=== PATIENT | female | born 1950 | race Caucasian/White ===

== ENCOUNTER 2024-11-28 14:52 | Emergency (ER) | payer MEDICARE, MEDICAID, SELFPAY ==
[2024-11-28 14:52] VITALS: BMI 22.8
[2024-11-28 15:49] VITALS: BP 136/47; PULSE 79; RESP 18; TEMP 37; O2SAT 96
--- NOTE | 2024-11-28 15:49 | XR_ITS ---
EXAMINATION: Ankle, left 3 views . Technique: Ankle AP, oblique, lateral 3 views Date and time of exam: November 28, 2024 at 1626 hours INDICATIONS: Patient fell today with into the ankle, ankle pain. FINDINGS: Acute fracture distal fibular shaft, no significant displacement Acute fracture medial malleolus, 3 mm offset at the fracture site No ankle dislocation IMPRESSION: Acute bimalleolar fractures
--- NOTE | 2024-11-28 15:49 | XR_ITS ---
Examination: Foot, left, 3 views Technique: AP, oblique, lateral views foot, 3 views Date and time of exam: November 28, 2024, 1626 hours INDICATION: Patient fell 2 days ago with injury to foot, foot pain. FINDINGS: Severe osteopenia. Please see the ankle report Old appearing angulation distal fifth metatarsal but clinical correlation advised Advanced osteoarthritis first tarsometatarsal joint Plantar posterior bony calcaneal spurs IMPRESSION: Advanced osteoarthritis first tarsometatarsal joint Please see the ankle report
--- NOTE | 2024-11-28 17:46 | PD.EDRME ---
Rapid Medical Screening Exam RME Arrival date/time: 11/28/24 14:52 74-year-old female presents emergency department complains of ground-level fall 2 days ago patient reports pain and swelling to the left foot ankle Chief Complaint: Extremity Injury, Lower Time Seen by Provider: 11/28/24 15:49 Vital signs: Vital Signs Temperature 98.6 F 11/28/24 15:49 Pulse Rate 79 11/28/24 15:49 Respiratory Rate 18 11/28/24 15:49 Blood Pressure 136/47 H 11/28/24 15:49 Pulse Oximetry (%) 96 11/28/24 15:49 Oxygen Delivery Method Room Air 11/28/24 15:49
--- NOTE | 2024-11-28 17:59 | EDNOTE_ITS ---
Lower Extremity Injury RME/HPI General Chief Complaint: Extremity Injury, Lower Stated Complaint: LEFT FOOT PAIN S/P FALL Time Seen by Provider: 11/28/24 15:49 Arrival date/time: 11/28/24 14:52 74-year-old female presents emergency department complains of ground-level fall 2 days ago patient reports pain and swelling to the left foot ankle. Patient reports she had no headache dizziness or chest pain prior to the fall and has no chest pain shortness of breath or weakness after the fall Limitations: no limitations RME / HPI RME / HPI Narrative: 11/28/24 14:52 74-year-old female presents emergency department complains of ground-level fall 2 days ago patient reports pain and swelling to the left foot ankle Related Data Allergies Allergy/AdvReac Type Severity Reaction Status Date / Time No Known Allergies Allergy Verified 11/28/24 14:54 Review of Systems Review of Systems Systems Reviewed: All systems reviewed, normal except as documented Constitutional Constitutional: Reports system reviewed and no additional complaints, except as documented, Denies fever(s) and Denies headache(s) Eyes Eyes: Reports system reviewed and no additional complaints, except as documented and Denies blurry vision ENT Ears, Nose, Mouth, and Throat: Reports system reviewed and no additional complaints, except as documented, Denies headache(s), Denies nasal congestion and Denies nasal discharge Cardiovascular Cardiovascular: Reports system reviewed and no additional complaints, except as documented, Denies chest pain and Denies dyspnea Respiratory Respiratory: Reports system reviewed and no additional complaints, except as d ocumented, Denies chest congestion, Denies cough and Denies dyspnea Gastrointestinal Gastrointestinal: Reports system reviewed and no additional complaints, except as documented and Denies abdominal pain Musculoskeletal Musculoskeletal: Reports system reviewed and no additional complaints, except as documented, Reports abnormal gait and Reports other (Left foot and ankle swelling) Integumentary/Breasts Skin/Breast: Reports system reviewed and no additional complaints, except as documented and Denies rash Neurologic Neurologic: Reports system reviewed and no additional complaints, except as documented, Reports as per HPI, Reports abnormal gait and Denies headache(s) Past Medical History Social History SMOKING STATUS: Never smoker ED Exam General Limitations: Present no limitations General appearance: Present alert and in no apparent distress Head Head exam: Present atraumatic, normocephalic and normal inspection Eye Eye exam: Present normal appearance, PERRL and EOMI; Absent conjunctival injection ENT ENT exam: Present normal exam, normal oropharynx and mucous membranes moist Neck Neck exam: Present normal inspection, full ROM and trachea midline Chest Chest inspection: Present normal inspection and symmetric chest wall rise Respiratory Respiratory exam: Present normal lung sounds bilaterally Cardiovascular Cardiovascular exam: Present regular rate, normal rhythm and normal heart sounds Abdominal Exam Abdominal exam: Present soft and normal bowel sounds Extremities Exam Extremities exam: Present tenderness, normal capillary refill and joint swelling Back Exam Back exam: Present normal inspection and full ROM Neurological Exam Neurological exam: Present alert, oriented X3, CN II-XII intact, normal gait and reflexes normal; Absent motor sensory deficit Psychiatric Psychiatric exam: Present normal affect and normal mood Skin Skin exam: Present warm, dry, intact and normal color Course Quality Measures none Orders Category Date Time Status XR ankle comp LT min 3V Stat Exams 11/28/24 15:49 Completed XR foot comp LT min 3V Stat Exams 11/28/24 15:49 Completed Vital Signs Vital signs: Vital Signs Temperature 98.6 F 11/28/24 15:49 Pulse Rate 79 11/28/24 15:49 Respiratory Rate 18 11/28/24 15:49 Blood Pressure 136/47 H 11/28/24 15:49 Pulse Oximetry (%) 96 11/28/24 15:49 Oxygen Delivery Method Room Air 11/28/24 15:49 O2 saturation 96% room air with normal limits Extremity Injury, Lower MDM Narrative MDM Narrative:: 74-year-old female presents emergency department complains of ground-level fall 2 days ago patient reports pain and swelling to the left foot ankle. Patient reports she had no headache dizziness or chest pain prior to the fall and has no chest pain shortness of breath or weakness after the fall On exam patient well-appearing patient's not appear ill or toxic and in no acute distress On exam patient does have swelling to the left foot and ankle mostly in the left lateral malleolus is where she has pain and swelling Imaging obtained consistent with fracture Consultation: I spoke with Dr. Hollis he states he will see the patient as office Monday at 3 PM Patient reports that she has a walker at home and she will use that and remain nonweightbearing At time of discharge patient does not report any significant pain Patient data External records reviewed:: [facility] previous records Clinical information provided by:: patient Social determinants that could affect healthcare access:: none Patient has the following chronic illnesses:: See history How is presenting disease/condition affected by chronic disease/condition?: uneffected by Evaluation data The following diagnostics were reviewed and interpreted by me:: radiology exam(s) Lab and/or radiology exams considered but not ordered:: Radiology obtain Interpretation Summary: Reviewed by me Medications / Prescriptions Medications or Prescriptions considered but not ordered:: Given Medication administrations:: Given Consultations Consultation(s) initiated? (list below): No Diagnosis Extremity Injury, Lower Differential Diagnosis: ankle sprain and strain and ankle fracture Most likely diagnosis given after review of the tests above:: Ankle fracture Admission Indicated Admission indicated?: not indicated Admission Request Was there a request for admission?: No Disposition Plan Disposition Plan: Discharge Discharge Attestation Discharge Attestation: The patient and all family members were given an opportunity to ask questions and understood the discharge instructions. Discharge instructions specifically effects, indications for sooner follow up or return to the emergency department, and the expected course of current diagnosis. Patient condition: Stable Discharge Plan Plan Patient Disposition: HOME (Self Care) Disposition Comment: Stable Prescriptions/Referrals Referrals: No Primary/Family,Physician [Primary Care Provider] - In 1 week Jim Schmidt MD [Physician] - 12/02/24 3:00 pm Problem List Clinical Impression: Bimalleolar ankle fracture Patient/Caregiver Discharge Instructions Education Materials: [facility] [employer] [facility] Additional Instructions: Please keep your appointment Monday at 3 PM with orthopedist for worsening symptoms return immediately Print Language: Cameroonian Stand Alone Forms: Linda Award Info., Patient Portal Info Letter PA/TURNER Supervising Physician JAZMINE/TURNER Supervising Physician: Dr Wilson
== END 2024-11-28 20:26 | disposition home or self-care (01) ==
PROVIDERS: Emergency Provider Emergency Medicine
DX: S82.845A Nondisplaced bimalleolar fracture of left lower leg, initial encounter for closed fracture (principal); W18.30XA Fall on same level, unspecified, initial encounter
CPT/HCPCS: 73610; 73630; 99283

== ENCOUNTER → 2025-01-14 | Outpatient (CLI) | payer MEDICARE, MEDICAID, SELFPAY ==
--- NOTE | 2025-01-14 | XR_ITS ---
EXAMINATION: Ankle, left 3 views . Technique: Ankle AP, oblique, lateral 3 views Date and time of exam: January 14, 2025 1146 hours Comparison November 28, 2024 INDICATIONS: Acute bimalleolar fractures November 28, 2024 postop reduction internal fixation FINDINGS: Partial healing with stable and satisfactory alignment bimalleolar fractures Within the hardware satisfactory position IMPRESSION: Partial healing with stable and satisfactory alignment bimalleolar fractures
== END | disposition home or self-care (01) ==
PROVIDERS: PCP Family Medicine; Referring Provider Orthopaedic Surgery; Visit Provider Orthopaedic Surgery
DX: S82.842D Displaced bimalleolar fracture of left lower leg, subsequent encounter for closed fracture with routine healing (principal); X58.XXXD Exposure to other specified factors, subsequent encounter; Z98.890 Other specified postprocedural states
CPT/HCPCS: 73610

== ENCOUNTER → 2025-03-17 | Outpatient (CLI) | payer MEDICARE, MEDICAID, SELFPAY ==
--- NOTE | 2025-03-17 13:55 | XR_ITS ---
EXAMINATION: Ankle, left 3 views . Technique: Ankle AP, oblique, lateral 3 views Date and time of exam: March 17, 2025 1357 hours Comparison January 14, 2025, November 28, 2024 INDICATIONS: Status post operative reduction internal fixation bimalleolar fractures FINDINGS: Significant healing fractures distal fibular shaft and medial malleolus with satisfactory and stable alignment IMPRESSION: Significant healing fractures distal fibular shaft and medial malleolus with satisfactory and stable alignment
== END | disposition home or self-care (01) ==
LOC: CDIM 13:34
PROVIDERS: PCP Family Medicine; Referring Provider Orthopaedic Surgery; Visit Provider Orthopaedic Surgery
DX: S82.842D Displaced bimalleolar fracture of left lower leg, subsequent encounter for closed fracture with routine healing (principal); X58.XXXD Exposure to other specified factors, subsequent encounter; Z98.890 Other specified postprocedural states
CPT/HCPCS: 73610

== ENCOUNTER → 2025-07-23 | Outpatient (CLI) | payer MEDICARE, MEDICAID, SELFPAY ==
--- NOTE | 2025-07-23 09:34 | XR_ITS ---
EXAMINATION: Ankle, left 3 views. Technique: Ankle AP, oblique, lateral 3 views Date and time of exam: July 23, 2025, 0959 hours INDICATIONS: Patient fell 2 months ago with ankle pain. FINDINGS: Prominent osteopenia Healed bimalleolar fractures No acute ankle fracture Large plantar bony calcaneal spur IMPRESSION: No acute ankle fracture
== END | disposition home or self-care (01) ==
LOC: CDIM 09:28
PROVIDERS: PCP Family Medicine; Referring Provider Orthopaedic Surgery; Visit Provider Orthopaedic Surgery
DX: M25.572 Pain in left ankle and joints of left foot (principal); Z87.81 Personal history of (healed) traumatic fracture
CPT/HCPCS: 73610